=== PATIENT | male | born 1955 | race Caucasian/White ===

== ENCOUNTER 2025-01-12 13:42 | Emergency (ER) | payer MEDICAID ==
[~2025-01-12] VITALS: Ht 170.2 cm; Wt 74.8 kg
[2025-01-12] MEDS ORDERED: ASPI81TA31 PO (14:14)
[2025-01-12] MEDS ORDERED: CLON0.1T PO (14:14)
[2025-01-12] MEDS ORDERED: METF-440 PO (14:14)
[2025-01-12] MEDS ORDERED: METO-356 PO (14:14)
[2025-01-12] MEDS ORDERED: EMPA25TA PO (14:14)
[2025-01-12] MEDS ORDERED: GABA600T12 PO (14:14)
[2025-01-12] MEDS ORDERED: PANT40TA49 PO (14:14)
[2025-01-12] MEDS ORDERED: PENT400T17 PO (14:14)
[2025-01-12] MEDS ORDERED: LOSA50TA39 PO (14:14)
[2025-01-12] MEDS ORDERED: SITA100T PO (14:14)
[2025-01-12] MEDS ORDERED: LEVO75TA7 PO (14:14)
[2025-01-12] MEDS ORDERED: WARF-58 PO (14:14)
[2025-01-12] MEDS ORDERED: TAMS-3 PO (14:14)
[2025-01-12] MEDS ORDERED: CILO100T PO (14:14)
[2025-01-12] MEDS ORDERED: ATOR20TA PO (14:14)
[2025-01-12] MEDS ORDERED: INSU100V7 SQ (14:14)
[2025-01-12 14:24] LABS: BASOPHILS % (AUTO) 0.9 % (0.0-2.0); EOSINOPHILS # (AUTO) 0.1 K/uL (0.0-0.7); EOSINOPHILS % (AUTO) 2.3 % (0.0-7.0); HEMATOCRIT 28.5 % (36.7-47.1); LYMPHOCYTES # (AUTO) 1.4 K/uL (0.8-4.8); LYMPHOCYTES % (AUTO) 26.1 % (20.5-51.5); MEAN CORPUSCULAR HEMOGLOBIN 24.4 uug (23.8-33.4); MEAN CORPUSCULAR HGB CONC 32 g/dL (32.5-36.3); MEAN CORPUSCULAR VOLUME 77.3 fL (73.0-96.2); MONOCYTES # (AUTO) 0.5 K/uL (0.1-1.30); MONOCYTES % (AUTO) 8.9 % (0.0-11.0); NEUTROPHILS # (AUTO) 3.4 K/uL (1.8-8.9); NEUTROPHILS % (AUTO) 61.8 % (38.5-71.5); PLATELET COUNT (AUTO) 211 K/uL (152-348); RED BLOOD CELL COUNT(AUTO) 3.68 MIL/uL (4.06-5.63); RED CELL DISTRIBUTION WIDTH 16.5 % (12.1-16.2); WHITE BLOOD COUNT (AUTO) 5.5 K/uL (3.6-10.2)
[2025-01-12 14:25] LABS: DIFFERENTIAL COMMENT 1
[2025-01-12 14:31] LABS: CALCIUM 8.5 mg/dL (8.5-10.1); CARBON DIOXIDE 23 mmol/L (21-32); CHLORIDE 106 mmol/L (98-107); CREATININE 1.8 mg/dL (0.6-1.3); GLUCOSE 128 mg/dL (74-106); POTASSIUM 4.9 mmol/L (3.5-5.1); SODIUM SERUM 141 mmol/L (136-145); UREA NITROGEN, BLOOD 29 mg/dL (7-18)
[2025-01-12] MEDS: IV NORMAL SALINE 500 ML BAG IV ONE (14:32)
[2025-01-12 16:03] VITALS: BP 132/65; O2SAT 98
== END 2025-01-12 16:03 | disposition home or self-care (01) ==
LOC: ER 13:42
DX: I95.2 Hypotension due to drugs (principal); R06.00 Dyspnea, unspecified; R07.9 Chest pain, unspecified; Z79.01 Long term (current) use of anticoagulants; Z79.02 Long term (current) use of antithrombotics/antiplatelets; Z79.82 Long term (current) use of aspirin; Z79.84 Long term (current) use of oral hypoglycemic drugs; Z79.890 Hormone replacement therapy; Z79.899 Other long term (current) drug therapy
CPT/HCPCS: 99285; 96360; 71045; 80048; 85025; 85610; 36415; 93005; J7040; A4606; A4663